=== PATIENT | male | born 2000 | race Caucasian/White ===

== ENCOUNTER 2024-03-31 07:44 | Inpatient (IN) | payer MEDICAID ==
[~2024-03-31] VITALS: Ht 170.2 cm; Wt 75.3 kg
[2024-03-31 07:52] VITALS: BP_SYST 130; PULSE 96; RESP 14; TEMP 97.6; O2SAT 97
[2024-03-31] MEDS ORDERED: FOLIC ACID 1 MG, THIAMINE HCL 100 MG, MAGNESIUM SULFATE 1 GM, MVI 10 ML in NACL 0.9% 1,... IV ONE (08:15)
[2024-03-31 08:37] LABS: BASOPHILS # (AUTO) 0.1 K/uL (0.0-0.2); BASOPHILS % (AUTO) 0.4 % (0.0-2.0); EOSINOPHILS % (AUTO) 0.3 % (0.0-4.0); HEMATOCRIT 44.8 % (36-54); HEMOGLOBIN 14.7 g/dL (14.0-18.0); LYMPHOCYTES # (AUTO) 2.2 K/uL (1.0-5.5); LYMPHOCYTES % (AUTO) 18.1 % (20.5-51.5); MEAN CORPUSCULAR HEMOGLOBIN 31 pg (27-31); MEAN CORPUSCULAR HGB CONC 33 % (32-36); MEAN CORPUSCULAR VOLUME 95 fL (79.0-98.0); MONOCYTES # (AUTO) 0.9 K/uL (0.0-1.0); MONOCYTES % (AUTO) 7.4 % (1.7-9.3); NEUTROPHILS % (AUTO) 73.8 % (40.0-70.0); PLATELET COUNT (AUTO) 196 K/uL (130-430); RED BLOOD CELL COUNT(AUTO) 4.72 MIL/uL (4.2-6.2); RED CELL DISTRIBUTION WIDTH 15.9 % (9.0-15.0); WHITE BLOOD COUNT (AUTO) 12.1 K/uL (4.8-10.8)
[2024-03-31 08:45] LABS: ALBUMIN 4.3 g/dL (3.4-4.8); CALCIUM 9.3 mg/dL (8.4-11.0); CREATININE 1.04 mg/dL (0.55-1.30); POTASSIUM 3.1 mmol/L (3.5-5.1); TOTAL BILIRUBIN 0.8 mg/dL (0.0-1.0); TOTAL PROTEIN, SERUM 8.4 g/dL (6.4-8.3)
[2024-03-31 08:47] LABS: BILIRUBIN,DIRECT 0.4 mg/dL (0.0-0.3)
[2024-03-31] MEDS: THIAMINE HCL 100 MG, MAGNESIUM SULFATE 1 GM in NS 100 ML IV ONE (09:37)
[2024-03-31] MEDS: FOLIC ACID 1 MG, MVI 10 ML in NACL 0.9% 1,000 ML IV ONE (09:37)
[2024-03-31] MEDS: NACL 0.9% 1,000 ML IV ONE (09:39)
[2024-03-31] MEDS: PANTOPRAZOLE SODIUM 40 MG/VIAL (PROTONIX) IVP ONE (09:39)
[2024-03-31] MEDS: POTASSIUM CHLORIDE 20 MEQ TABLET.ER PO ONE (09:39)
[2024-03-31] MEDS ORDERED: ONDANSETRON HCL 4 MG/2 ML VIAL IVP PRN (13:30)
[2024-03-31] MEDS ORDERED: LORazepam 2 MG/ML VIAL IVP PRN (13:30)
[2024-03-31 16:00] VITALS: BP_SYST 124; PULSE 74; RESP 20; TEMP 97.3; O2SAT 96
[2024-03-31] MEDS: MORPHINE 2 MG/ML INJ. SYRINGE IVP PRN (17:15)
[2024-03-31 17:49] VITALS: BP_SYST 103; PULSE 73; RESP 20; TEMP 97.4; O2SAT 97
[2024-03-31 19:00] VITALS: O2SAT 95
[2024-03-31] MEDS ORDERED: LORazepam 1 MG TABLET PO PRN (19:30)
[2024-03-31 20:00] VITALS: BP_SYST 117; PULSE 82; RESP 18; TEMP 97.9; O2SAT 95
[2024-03-31] MEDS: chlordiazePOXIDE HCL 25 MG CAPSULE PO SCH (20:32)
[2024-04-01] VITALS (7 sets, daily range): BP systolic 116–138; PULSE 61–86; RESP 15–20; TEMP 97.1–98.8; O2SAT 95–99
[2024-04-01] MEDS: LR 1,000 ML IV SCH (01:53)
[2024-04-01 08:40] LABS: BASOPHILS % (AUTO) 0.6 % (0.0-2.0); EOSINOPHILS % (AUTO) 1.2 % (0.0-4.0); HEMATOCRIT 37.3 % (36-54); HEMOGLOBIN 12.5 g/dL (14.0-18.0); LYMPHOCYTES # (AUTO) 1.4 K/uL (1.0-5.5); LYMPHOCYTES % (AUTO) 37.9 % (20.5-51.5); MEAN CORPUSCULAR HEMOGLOBIN 32 pg (27-31); MEAN CORPUSCULAR HGB CONC 34 % (32-36); MEAN CORPUSCULAR VOLUME 96 fL (79.0-98.0); MONOCYTES # (AUTO) 0.3 K/uL (0.0-1.0); MONOCYTES % (AUTO) 8.5 % (1.7-9.3); NEUTROPHILS # (AUTO) 1.9 K/uL (1.8-7.7); NEUTROPHILS % (AUTO) 51.8 % (40.0-70.0); PLATELET COUNT (AUTO) 115 K/uL (130-430); RED BLOOD CELL COUNT(AUTO) 3.91 MIL/uL (4.2-6.2); RED CELL DISTRIBUTION WIDTH 15.8 % (9.0-15.0); WHITE BLOOD COUNT (AUTO) 3.6 K/uL (4.8-10.8)
[2024-04-01 08:42] LABS: HEMOGLOBIN A1C 5.64 % (<5.7)
[2024-04-01 08:48] LABS: INR 1.2 (0.80-1.20); PROTHROMBIN TIME 12.2 SECS (9.5-12.5)
[2024-04-01] MEDS: FOLIC ACID 1 MG TABLET PO SCH (09:00)
[2024-04-01] MEDS: THIAMINE HCL 100 MG TABLET PO SCH (09:00)
[2024-04-01 09:21] LABS: ALBUMIN 3.6 g/dL (3.4-4.8); CALCIUM 8.6 mg/dL (8.4-11.0); CREATININE 0.73 mg/dL (0.55-1.30); TOTAL BILIRUBIN 0.6 mg/dL (0.0-1.0)
[2024-04-01] MEDS: POTASSIUM CHLORIDE 20 MEQ TABLET.ER PO ONE ×2 (10:00→14:43)
[2024-04-01] MEDS: chlordiazePOXIDE HCL 25 MG CAPSULE PO SCH ×2 (14:18→14:36)
[2024-04-01] MEDS: SERTRALINE HCL 50 MG TABLET PO SCH (14:43)
[2024-04-01] MEDS: PANTOPRAZOLE SODIUM 40 MG TAB PO SCH (14:43)
[2024-04-01] MEDS: traZODone HCL 50 MG TABLET (DESYREL) PO PRN (22:18)
[2024-04-02] VITALS: BP_SYST 138; PULSE 71; RESP 18; TEMP 97.1; O2SAT 95
[2024-04-02] MEDS: POTASSIUM CHLORIDE 20 MEQ TABLET.ER PO ONE (01:14)
[2024-04-02 05:31] LABS: BASOPHILS % (AUTO) 0.7 % (0.0-2.0); EOSINOPHILS # (AUTO) 0.1 K/uL (0.0-0.4); EOSINOPHILS % (AUTO) 1.6 % (0.0-4.0); HEMATOCRIT 39.4 % (36-54); LYMPHOCYTES # (AUTO) 1.7 K/uL (1.0-5.5); LYMPHOCYTES % (AUTO) 45.3 % (20.5-51.5); MEAN CORPUSCULAR HEMOGLOBIN 31 pg (27-31); MEAN CORPUSCULAR HGB CONC 33 % (32-36); MEAN CORPUSCULAR VOLUME 95 fL (79.0-98.0); MONOCYTES # (AUTO) 0.4 K/uL (0.0-1.0); MONOCYTES % (AUTO) 10.3 % (1.7-9.3); NEUTROPHILS # (AUTO) 1.6 K/uL (1.8-7.7); NEUTROPHILS % (AUTO) 42.1 % (40.0-70.0); RED BLOOD CELL COUNT(AUTO) 4.16 MIL/uL (4.2-6.2); RED CELL DISTRIBUTION WIDTH 15.9 % (9.0-15.0)
[2024-04-02 05:51] LABS: ALBUMIN 3.4 g/dL (3.4-4.8); CREATININE 0.7 mg/dL (0.55-1.30); POTASSIUM 3.8 mmol/L (3.5-5.1); TOTAL PROTEIN, SERUM 6.5 g/dL (6.4-8.3)
[2024-04-02 08:00] VITALS: BP_SYST 119; PULSE 60; RESP 16; TEMP 96.9; O2SAT 97
[2024-04-02 08:04] LABS: WHITE BLOOD COUNT (AUTO) 3.8 K/uL (4.8-10.8)
[2024-04-02] MEDS ORDERED: SERT-436 PO (08:27)
[2024-04-02] MEDS ORDERED: Thiamine Hcl PO (08:27)
[2024-04-02] MEDS ORDERED: CHLO25CA10 PO (08:27)
[2024-04-02] MEDS ORDERED: PRO40 PO (08:27)
[2024-04-02] MEDS ORDERED: FOLI-43 PO (08:27)
[2024-04-02 11:03] VITALS: BP_SYST 119; PULSE 60; RESP 16; TEMP 96.9; O2SAT 97
[2024-04-02 11:57] LABS: PLATELET COUNT (AUTO) 66 K/uL (130-430)
[2024-04-02] MEDS: HYDROmorphone 2 MG TAB PO PRN (12:06)
[2024-04-02 15:03] VITALS: BP_SYST 117; PULSE 73; RESP 16; TEMP 96.4; O2SAT 97
[2024-04-02 20:02] VITALS: BP_SYST 138; PULSE 66; RESP 20; TEMP 97.9; O2SAT 98
[2024-04-02 22:00] VITALS: O2SAT 96
[2024-04-03] VITALS: BP_SYST 121; PULSE 71; RESP 17; TEMP 98; O2SAT 95
[2024-04-03 08:00] VITALS: O2SAT 97
[2024-04-03] MEDS: METOCLOPRAMIDE HCL 10 MG/2 ML VIAL IVP ONE (10:06)
[2024-04-03 11:06] VITALS: BP_SYST 114; PULSE 63; RESP 15; TEMP 97.4; O2SAT 93
[2024-04-03] MEDS: METOCLOPRAMIDE HCL 10 MG/2 ML VIAL IVP SCH (12:00)
[2024-04-03 13:40] VITALS: BP_SYST 135; PULSE 73; RESP 18; TEMP 97.9; O2SAT 96
[2024-04-03 15:41] VITALS: BP_SYST 113; PULSE 72; RESP 16; TEMP 98.1; O2SAT 98
[2024-04-06 07:07] LABS: HEPATITIS A AB, IgM Negative (Negative); HEPATITIS B CORE AB, IgM Negative (Negative); HEPATITIS B SURFACE AG Negative (Negative); HEPATITIS C VIRUS AB Non Reactive (Non Reactive)
== END 2024-04-03 15:48 | disposition home or self-care (01) | DRG 280 ==
LOC: SED 07:44 → STU 13:16
PROVIDERS: ADMIT Internal Medicine; ATTEND Internal Medicine
DX: K70.9 Alcoholic liver disease, unspecified (principal); K70.10 Alcoholic hepatitis without ascites; D61.818 Other pancytopenia; F10.129 Alcohol abuse with intoxication, unspecified; E87.6 Hypokalemia; K76.0 Fatty (change of) liver, not elsewhere classified; F32.9 Major depressive disorder, single episode, unspecified; Z88.0 Allergy status to penicillin; Z88.8 Allergy status to other drugs, medicaments and biological substances; Y90.8 Blood alcohol level of 240 mg/100 ml or more; R73.03 Prediabetes
CPT/HCPCS: 36415; 80048; 80053; 80061; 80074; 80076; 82105; 83037; 83690; 83735; 85025; 85610; 87081; 96365; 99285; G0378; G0482; J2270; J2470; J2765; J3411; J3475; J3490; J7030; Q9967